=== PATIENT | male | born 1945 | race Caucasian/White ===

== ENCOUNTER 2018-09-13 08:50 | Outpatient (RCR) | payer MEDICARE, OTHER ==
[2018-08-15 13:34] VITALS: BP 123/45
[~2018-09-13 08:50] MED LIST: ADV250/50 INH; ALBU1.257 IH; ALBU8.5H11 INH; ALBU8.5H12 IH; AMLO-125 PO; AMLO-127 PO; AMLO-98 PO; AMLO2.5T78 PO; CELE-1 PO; CLOB15CR22 TP; CLOT15CR64 TP; CPAP; ESOM40CA42 PO; FERR28TA2 PO; FESO8PT; FIN5 PO; FLUC200T52 PO; FLUT1DIS28 IH; FURO-45 PO; FURO-47 PO; HCTZ25 PO; HYDR-2966 PO; LEVO-85 PO; NYST15CR33 TP; NYST15PO4 TP; OXYGENHOME INH; PAN40 PO; PER PO; PNEI IJ; POTA-23 PO; SUC1 PO; SUCR1TAB51 PO; TAMS0.4C25 PO; TAMS0.4C70 PO; TIO18R INH; TRA50 PO; TRAM-420 PO
--- NOTE | 2018-09-13 13:24 | ONCOLOGY FOLLOW UP NOTE ---
EVENT DATE: September 13, 2018 CHIEF COMPLAINT/REASON FOR VISIT Prostate carcinoma. Patient is here to review an updated PSA. ONCOLOGY HISTORY 1. Adenocarcinoma of the prostate. Patient was diagnosed in 2014. High PSA of 31 ng/mL. Laura 6 tumor appreciated in 4 of 12 core biopsies with negative metastatic workup. 2. Status post external beam radiotherapy to 7,900 cGy and 44 fractions, completed February 2015 with nine months of antigen deprivation therapy. INTERVAL HISTORY Patient is seen once a year in our office and once a year with Dr. George. He is doing remarkably well from a prostate cancer standpoint. PSA is stable at 0.12 ng/mL with no significant recovery following therapy. He denies any bone pain. Voiding function is stable on tamsulosin 0.4 mg every day. He does have some urgency at times related to Lasix. Medications were reviewed with the patient. He sees Dr. Hanson twice a year. MEDICATIONS 1. Lasix 20 mg a day. 2. Amlodipine 2.5 mg a day. 3. Albuterol nebulizer every four hours p.r.n. 4. Celebrex 200 mg a day. 5. Nexium 40 mg a day. 6. Tamsulosin 0.4 mg a day. 7. Carafate 1 gram daily. 8. Potassium 10 mEq daily. 9. Advair 250/50 Diskus two puffs every day. 10. Oxygen 2L. 11. CPAP at home. PAST MEDICAL HISTORY 1. Prostate carcinoma with history as above. 2. COPD. 3. History of peptic ulcer disease. 4. Osteoarthritis. 5. Hypertension. SURGICAL HISTORY 1. Previous prostate biopsy, October 04, 2014. 2. Prior hernia repair. ALLERGIES None. SOCIAL HISTORY Brother had melanoma at age 65. Previous smoker at one pack per day for 55 years. Retired [employer]. He lives alone. He visits his mother [facility] at [facility]. REVIEW OF SYSTEMS Entirely negative except some shortness of breath with exertion. Occasional dry cough. PHYSICAL EXAMINATION GENERAL: This is an 82-year old gentleman who appears slightly older than his stated age. VITAL SIGNS: Blood pressure 110/61, pulse 71, respirations 16, O2 sat 88% on room air today. LUNGS: Expiratory wheezes bilaterally. CARDIOVASCULAR: Regular. ABDOMEN: No gross organomegaly. RECTAL: Deferred due to stable PSA. IMPRESSION No evidence of prostate cancer or recurrence. Patient is remarkably four years remote from intermediate high-risk prostate carcinoma based on his PSA. He will follow up with Dr. George in six months and return here in a year. I may release him from the radiation clinic after next year if he will continue regular follow up with urology. THALIA
[2018-11-01] MEDS ORDERED: CELE-1 PO (13:40)
[2018-11-02] MEDS ORDERED: ESOM40CA42 PO (08:36)
[2018-11-02] MEDS ORDERED: POTA-23 PO (08:36)
[2018-11-02] MEDS ORDERED: SUCR1TAB51 PO (08:36)
[2018-11-02] MEDS ORDERED: TAMS0.4C25 PO (08:36)
== END 2018-11-13 ==
LOC: RAON 08:50
PROVIDERS: ATTEND Radiology Radiation Oncology
DX: C61 Malignant neoplasm of prostate (principal); Z92.3 Personal history of irradiation; R39.15 Urgency of urination; J44.9 Chronic obstructive pulmonary disease, unspecified; I10 Essential (primary) hypertension; M19.90 Unspecified osteoarthritis, unspecified site; Z87.891 Personal history of nicotine dependence
CPT/HCPCS: 36415; 84153; G0463; 99212

== ENCOUNTER → 2019-01-11 | Outpatient (CLI) | payer MEDICARE, OTHER ==
[~2019-01-11] MED LIST changes: +ACET-2146 PO; +ALBU2.5V36 INH; +ESOM20CA31 PO; +FERR325T24 PO
[2019-01-11 12:26] LABS: PLATELET COUNT, AUTOMATED 156 K/uL (150-450)
== END ==
LOC: LAB 12:16
PROVIDERS: ATTEND Family Medicine
DX: I10 Essential (primary) hypertension (principal)
CPT/HCPCS: 36415; 82040; 82247; 82310; 82374; 82435; 82565; 82947; 84075; 84132; 84155; 84295; 84450; 84460; 84520; 85025

== ENCOUNTER → 2019-01-24 | Outpatient (CLI) | payer MEDICARE, OTHER | LOC: LAB 09:23 | PROVIDERS: ATTEND Family Medicine | DX: D50.9 Iron deficiency anemia, unspecified (principal) | CPT/HCPCS: 36415; 85014; 85018 ==

== ENCOUNTER → 2019-01-26 | Outpatient (CLI) | payer MEDICARE, OTHER ==
[~2019-01-26] MED LIST changes: +OMEP-126 PO
== END ==
LOC: LAB 14:16
PROVIDERS: ATTEND Family Medicine
DX: K92.1 Melena (principal)
CPT/HCPCS: 82274

== ENCOUNTER → 2019-02-02 | Outpatient (CLI) | payer MEDICARE, OTHER ==
[~2019-02-02] MED LIST changes: +CYAN100058 PO
[2019-02-02 15:14] LABS: PLATELET COUNT, AUTOMATED 157 K/uL (150-450)
== END ==
LOC: RAD 00:22
PROVIDERS: ATTEND Family Medicine
DX: J44.9 Chronic obstructive pulmonary disease, unspecified (principal)
CPT/HCPCS: 36415; 82607; 82728; 85025; 93306

== ENCOUNTER → 2019-02-06 | Outpatient (CLI) | payer MEDICARE, OTHER | LOC: RESP 07:11 | PROVIDERS: ATTEND Family Medicine | DX: J98.4 Other disorders of lung (principal) | CPT/HCPCS: 94060; 94726; 94729 ==

== ENCOUNTER → 2019-02-21 | Outpatient (CLI) | payer MEDICARE, OTHER | LOC: LAB 10:05 | PROVIDERS: ATTEND Urology | DX: C61 Malignant neoplasm of prostate (principal) | CPT/HCPCS: 36415; 84153 ==

== ENCOUNTER → 2019-02-21 | Outpatient (CLI) | payer MEDICARE, OTHER | LOC: LAB 10:02 | PROVIDERS: ATTEND Family Medicine | DX: D64.9 Anemia, unspecified (principal); J44.9 Chronic obstructive pulmonary disease, unspecified | CPT/HCPCS: 36415; 85014; 85018 ==

== ENCOUNTER → 2019-03-28 | Outpatient (CLI) | payer MEDICARE, OTHER ==
[~2019-03-28] MED LIST changes: +MIRA50TA PO
[2019-03-28 15:08] LABS: PLATELET COUNT, AUTOMATED 137 K/uL (150-450)
== END ==
LOC: LAB 14:47
PROVIDERS: ATTEND Family Medicine
DX: D51.9 Vitamin B12 deficiency anemia, unspecified (principal)
CPT/HCPCS: 82310; 82374; 82435; 82565; 82607; 82947; 84132; 84295; 84520; 85025